=== PATIENT | female | born 1945 | race Caucasian/White ===

== ENCOUNTER → 2018-08-05 | Outpatient (CLI) | payer OTHER ==
--- NOTE | 2018-08-05 17:24 | PCVCIMAG ---
EXAM: BILATERAL LOWER EXTREMITY ARTERIAL DUPLEX INDICATION: Peripheral Arterial Disease. Leg pain. FINDINGS: Right Leg: Common femoral and profunda femoral arteries are patent. Superficial femoral artery and popliteal artery patent. The anterior tibial and peroneal arteries are patent. Occlusion throughout posterior tibial artery. Left Leg: Common femoral and profunda femoral arteries are patent. 90% stenosis mid [place] left superficial femoral artery with segmental occlusion distal left superficial femoral artery. Refilling of the popliteal artery. The anterior tibial and peroneal arteries are patent. The posterior tibial artery is occluded. IMPRESSION: Occlusion of the right posterior tibial artery. Otherwise no flow limiting stenosis in the right lower extremity. Segmental occlusion distal left superficial femoral artery. Occlusion left posterior tibial artery. LOC:[id number]
== END | disposition home or self-care (01) ==
LOC: PCVCIMAG 08:14
PROVIDERS: ATTEND Nuclear Medicine Nuclear Cardiology
DX: I73.9 Peripheral vascular disease, unspecified (principal)
CPT/HCPCS: 93925

== ENCOUNTER → 2018-08-18 | Outpatient (CLI) | payer OTHER ==
[~2018-08-18] MED LIST: CLOPIDOGREL BISULFATE 75 MG TABLET ONE; DIAZEPAM 10 MG TABLET. ONE; EPTIFIBATIDE BOLUS 2,000 MCG/ML 10ML VIAL. IV ONE; HEPARIN for SUB-Q USE 5,000 UNIT/ML VIAL. SQ ONE; IODIXANOL 270 MG/ML 100 ML VIAL. ONE; IV NORMAL SALINE 1000ML BAG 1,000 ML ONE; LIDOCAINE 1%/EPI 1:100,000 20 ML VIAL. ONE; MIDAZOLAM HCL/PF 2 MG/2 ML VIAL. ONE; fentaNYL PF VIAL 100 MCG/2 ML VIAL ONE; hydrALAZINE 20 MG/ML VIAL. ONE
--- NOTE | 2018-08-18 17:06 | PCVCINTER ---
EXAM: 1. AORTOGRAM AND BILATERAL LOWER EXTREMITY RUNOFF ANGIOGRAM 2. BILATERAL RENAL ANGIOGRAPHY 3. LEFT SUPERFICIAL FEMORAL ARTERY ATHERECTOMY AND STENT PLACEMENT. 4. SECONDARY THROMBECTOMY LEFT SUPERFICIAL FEMORAL ARTERY. INDICATION: Peripheral arterial disease. Leg pain. Hypertension. Renal atherosclerosis. No prior catheter based angiographic study is available. A full diagnostic angiogram study is performed today and the decision to intervene is based on this diagnostic study. PROCEDURE: Procedure and risks of angiography intervention is appropriate including limb loss stroke and were discussed with the patient's family and consent obtained. The patient's right groin was prepped in the normal sterile fashion. IV conscious sedation was used throughout procedure with appropriate monitoring from 12:30 PM through 1:45 PM. Ultrasound was used to interrogate the right groin and showed the right common femoral artery to be patent. A permanent spot film was obtained. Under ultrasound guidance access into the right common femoral artery was obtained and a 5 [place] sheath was placed. Through this a 5 [place] flush catheter was placed into the abdominal aorta at the level of the renal arteries and AP aortogram was performed. Catheter was positioned at the aortic bifurcation and both oblique views of the pelvis were obtained. Catheter was positioned into the right external iliac artery and right leg runoff angiography was performed. Catheter was exchanged for a visceral catheter was placed into the right renal arteries and right renal angiograms obtained. Catheter was placed into the the left renal arteries and left renal angiograms were obtained. Catheter was advanced to the level of the left external iliac artery and left leg runoff angiography was obtained. Patient was given 4000 units of heparin. A 6 [place] crossover sheath was placed via the right groin to the level of the left common femoral artery. Atherectomy of the left superficial femoral artery was performed with 2.0 mm [employer] laser atherectomy catheter in the standard fashion. Following atherectomy small areas of thrombus were observed and because of this secondary thrombectomy throughout the left superficial femoral artery was carried out with mechanical suction thrombectomy catheter in the standard fashion. Minimal debris was removed. Stent placement across the areas of high-grade stenosis in the left superficial femoral artery was carried out with a 6 x 80 Smart control stent distally and 6 x 100 Smart control stent proximal/mid vessel with subsequent dilatation to 4.2 mm. Follow-up angiogram was performed. Catheters and wires removed. Sheath was removed and hemostasis obtained using the FISH device. No immediate complications. FINDINGS: Aortogram: There is one right and one left renal artery. Mild plaque infrarenal abdominal aorta without significant stenosis. Pelvis: Right and left common and external iliac arteries show good patency throughout. Both internal iliac arteries are patent. The right and left common femoral arteries show adequate patency. Both profunda femoral arteries are patent. Right renal artery: Minimal plaque proximal vessel does not cause significant stenosis. Left renal artery: Minimal plaque proximal vessel, cause significant stenosis. Right leg: Superficial femoral artery shows satisfactory patency throughout as does the popliteal artery. The anterior tibial artery is continuous throughout although has moderately high grade diffuse stenosis in its proximal/midportion. Posterior tibial artery is occluded throughout its length. There is a 85% stenosis tibioperoneal trunk the peroneal artery being patent in its remainder. Left leg: Common femoral artery is patent. Profunda femoral artery is patent. 99% stenosis proximal/mid [place] superficial femoral artery with 90% stenosis distal [place] superficial femoral artery. Diffuse plaquing proximal/mid popliteal artery resulting in 60% stenosis not felt be critically flow-limiting. The tibioperoneal trunk is occluded. The posterior tibial artery is occluded throughout its length. There is refilling of the peroneal artery and is mid and distal portion. There is 50% stenosis proximal anterior tibial artery which is otherwise widely patent into the dorsalis pedis which shows moderate stenosis distally. Left superficial femoral artery: Following procedure as above vessel shows good patency throughout. IMPRESSION: Areas of high-grade stenosis proximal and distal left superficial femoral artery were treated as above with good patency restored. Moderate stenoses popliteal artery and proximal anterior tibial artery as reviewed above. 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 There is a 85% stenosis right tibioperoneal trunk which is a dominant runoff vessel. Patient will return in 1-2 weeks for correction of this. LOC:[id number]
== END | disposition home or self-care (01) ==
LOC: PCVCINTER 13:28
PROVIDERS: ATTEND Nuclear Medicine Nuclear Cardiology
DX: I70.212 Atherosclerosis of native arteries of extremities with intermittent claudication, left leg (principal); I70.1 Atherosclerosis of renal artery; I70.0 Atherosclerosis of aorta; I10 Essential (primary) hypertension; E78.00 Pure hypercholesterolemia, unspecified; I45.81 Long QT syndrome; I47.2 Ventricular tachycardia; I25.10 Atherosclerotic heart disease of native coronary artery without angina pectoris; I42.9 Cardiomyopathy, unspecified; Z88.5 Allergy status to narcotic agent; Z79.82 Long term (current) use of aspirin; Z79.899 Other long term (current) drug therapy; F17.210 Nicotine dependence, cigarettes, uncomplicated; Z95.810 Presence of automatic (implantable) cardiac defibrillator; Z72.89 Other problems related to lifestyle
CPT/HCPCS: 36252; 37186; 37227; 75716; 76937; 99152; 99153; C1725; C1751; C1757; C1760; C1769; C1876; C1885; C1887; C1894; J0360; J0690; J1327; J1644; J2250; J3010; J3490; J7030; Q9967